=== PATIENT | female | born 1955 | race Caucasian/White ===

== ENCOUNTER → 2018-11-15 | Day surgery (SDC) | payer OTHER | LOC: JMAMMO 08:57 ==

== ENCOUNTER 2018-12-15 04:56 | Day surgery (SDC) | payer OTHER ==
[2018-12-13 19:01] VITALS: BMI 33.5
[2018-12-15] MEDS ORDERED: LIDOCAINE HCL 1%, 10 MG/ML (20ML VIAL) ONE ×2 (11:35→11:36)
[2018-12-15] MEDS ORDERED: ISOSULFAN BLUE 10 MG/ML VIAL SQ ONE (11:35)
[2018-12-15] MEDS ORDERED: KETOROLAC TROMETHAMINE 30 MG/1 ML VIAL ONE (12:38)
[2018-12-15] MEDS ORDERED: PROPOFOL 20 ML ONE (12:38)
[2018-12-15] MEDS ORDERED: DEXAMETHASONE SOD PHOSPHATE 4 MG/1 ML VIAL ONE (12:38)
[2018-12-15] MEDS ORDERED: MIDAZOLAM HCL 2 MG/2 ML SINGLE DOSE VIAL ONE (12:38)
[2018-12-15] MEDS ORDERED: ceFAZolin SODIUM 1 GM VIAL IVPB ONE (13:12)
[2018-12-15] MEDS ORDERED: ePHEDrine SULFATE 50 MG/1 ML AMPULE ONE (13:35)
[2018-12-15] MEDS ORDERED: LIDOCAINE HCL 1%, 10 MG/ML (20ML VIAL) NR ONE (14:13)
[2018-12-15] MEDS ORDERED: oxyCODONE HCL 5 MG TABLET PO PRN (14:43)
[2018-12-15] MEDS ORDERED: ONDANSETRON 4 MG/2 ML VIAL IVPUSH PRN (14:43)
[2018-12-15] MEDS ORDERED: LACTATED RINGERS SOLUTION 1,000 ML IV SCH (14:45)
[2018-12-15 17:04] VITALS: TEMP 97.2
[2018-12-15 17:58] VITALS: BP 141/69; PULSE 90
--- NOTE | 2018-12-15 20:21 | OP ---
DATE OF OPERATION: 12/15/2018 PREOPERATIVE DIAGNOSIS: Left breast cancer. POSTOPERATIVE DIAGNOSIS: Left breast cancer. PROCEDURE: Left breast wide localized lumpectomy, central node biopsy. SURGEON: Radha Cannon M.D. ANESTHESIA: General. ESTIMATED BLOOD LOSS: Minimal. COMPLICATIONS: None. This was a sterile procedure. INDICATION FOR PROCEDURE: Patient presented with a screening mammogram and ultrasound that noted a lesion in the upper outer left breast. A needle core biopsy showed invasive carcinoma. My recommendation was lumpectomy and central node biopsy. The procedure was discussed, all questions answered. PROCEDURE IN DETAIL: The patient was brought to [facility] in [place], was taken out to breast imaging, whereby we localized clip in the upper outer left breast by the radiologist and brought to nuclear medicine, where I injected technetium injection in the left 2 o'clock areolar border and then brought up to the operating room, and after induction of general anesthesia and IV antibiotics, 5 mL of isosulfan blue dye was injected into the left subareolar plexus and breast was massaged for 5 minutes. The breast and axilla were then prepped and draped in the usual sterile fashion. The area of the lumpectomy in the outer left breast as well as the axillary area were anesthetized with 1% lidocaine without epinephrine. A 4-cm incision was made in the left axilla, carried down through the clavipectoral fascia to identify 3 sentinel lymph nodes. There was sentinel lymph node number 1 that was blue and hot, the 2nd was also blue and hot, and the 3rd one has the maximum radioactivity was also blue and hot. There was no other blue dye radioactivity. Within the axilla, there were no pathologic lymph nodes on examination. Once the axillary surgery was completed, hemostasis was assured with electrocautery, and then the left breast lumpectomy was performed. A radial incision was made in the left breast 2 o'clock location and the wire was used as a guide to get down to the area. This was incised en bloc, tagged with a long stitch lateral, short stitch superior, and sent for specimen radiograph. Hemostasis assured with electrocautery. A specimen radiograph showed the clip and wire to be intact within the specimen, this was the density essentially central in the specimen. This was then sent to pathology for permanent section. Once hemostasis was assured, the parenchyma was approximated with interrupted 2-0 Vicryl, skin approximated with interrupted 2-0 Vicryl, running 4-0 Prolene. A sterile dressing with Tegaderm and 4x4s applied. The axillary incision was also closed in routine fashion with interrupted 2-0 Vicryl, running 4-0 Prolene. A sterile dressing with Tegaderm and 4x4s applied. She was extubated on the operating room table and taken to recovery in good condition. Ashvin [id number]
--- NOTE | 2018-12-22 16:46 | PATH ---
Surgical Pathology Report Patient Name: ZOHAIB WHITFIELD [facility]. Rec. #: [id number] /Age/Gender: 1955 (Age: 63) / F Account: [id number] Location: [facility] Taken: 12/15/2018 Received: 12/15/2018 Reported: 12/22/2018 Physicians: Radha Cannon M.D. Specimen(s) Received A: LEFT AXILLARY SENTINEL LYMPH NODE #1 HOT AND BLUE B: LEFT AXILLARY SENTINEL LYMPH NODE #2 HOT AND BLUE C: LEFT AXILLERY SENTINEL LYMPH NODE #3 BLUE AND HOT D: LEFT BREAST LUMPECTOMY Clinical History Wide excision: Invasive CA Final Diagnosis A. lymph node, left axillary sentinel #1, excision: One lymph node, negative for metastatic carcinoma (0/1). B. lymph node, left axillary sentinel #2, excision: One lymph node, negative for metastatic carcinoma (0/1). C. lymph node, left axillary sentinel #3, excision: One lymph node, negative for metastatic carcinoma (0/1). D. breast, left, lumpectomy: Encapsulated papillary carcinoma (low nuclear grade), measuring 1.0 cm in greatest dimension, microscopically. (See note) No invasion is identified. 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 Surgical margins are uninvolved by papillary carcinoma/DCIS; papillary carcinoma and DCIS are aT 4 mm From the closest (medial) margin. Remaining breast tissue shows INTRADUCTAL PAPILLOMAS, atypical ductal hyperplasia (adh) SCLEROSING adenosis, usual ductal hyperplasia (UDH), cystic apocrine metaplasia and associated calcifications. Prior biopsy site changes are present. Pathologic stage (pTNM): pTis (DCIS) pN0. see also DCIS case summary below. Note: Myoepithelial immunohistochemical markers (SMM-HC & p63, performed at [facility]) demonstrate the presence of myoepithelial cells in the papillary carcinoma. This finding supports the diagnosis. Comments DCIS of the Breast: Surgical Pathology Cancer Case Summary (Based on AJCC TNM 8 th edition) Procedure _X_ Excision (less than total mastectomy) Specimen Laterality _X_ Left Size (Extent) of DCIS Estimated size (extent) of DCIS (greatest dimension using gross and microscopic evaluation): at least (millimeters) 10 mm Number of blocks with DCIS: 2 Number of blocks examined: 9 Note: The size (extent) of DCIS is an estimation of the volume of breast tissue occupied by DCIS. Histologic Type _X_ Ductal carcinoma in situ _X_ Encapsulated papillary carcinoma (with solid papillary features) without invasive carcinoma Architectural Patterns _X_ Cribriform _X_ Micropapillary _X_ Papillary Nuclear Grade _X_ Grade I (low) Necrosis _X_ Present, focal (small foci or single cell necrosis) Margins _X_ Uninvolved by encapsulated papillary carcinoma /DCIS Distance from closest margin (millimeters): 4 mm Specify closest margin: medial Regional Lymph Nodes _X_ Uninvolved by tumor cells Number of Lymph Nodes Examined: 3 Number of [place] Nodes Examined : 3 Pathologic Stage Classification (pTNM, AJCC 8th Edition) Primary Tumor (pT) _X_ pTis (DCIS): Ductal carcinoma in situ Regional Lymph Nodes (pN) _X_pN0(sn) Microcalcifications _X_ Present in DCIS _X_ Present in nonneoplastic tissue Biomarker Studies Results of ER and MT studies performed on this specimen (block D2) at [facility] are as follows: ER (clone [id number] mouse monoclonal antibody by [employer]): 100 % nuclear staining with strong intensity (positive). MT (clone16 mouse monoclonal antibody by [employer]): >95 % nuclear staining with moderate to strong intensity (positive). Positive and negative controls (internal if applicable) show appropriate results. Formalin fixation and cold ischemic times are within current ASCO/CAP recommendations for ER, MT and Her2 testing. Electronically Signed Georgia Goodman M.D. Gross Description A. Received in formalin, labeled "left axillary sentinel lymph node #1 hot and blue" is a 1.8 x 0.7 x 0.4 cm lymph node with attached fatty tissue. The lymph node is bisected and entirely submitted in one cassette. B. Received in formalin, labeled "left axillary sentinel lymph node #2 hot and blue" is a 1.3 x 0.6 x 0.4 cm lymph node with attached fatty tissue. The lymph node is bisected and entirely submitted in one cassette. C. Received in formalin, labeled "left axillary sentinel lymph node #3 blue and hot" is a 1.4 x 1.0 x 0.5 cm lymph node with attached fatty tissue. The lymph node is bisected and entirely submitted in one cassette. D. Received in formalin, labeled "left breast lumpectomy" is a 5.5 x 4.5 x 1.4 cm portion of fibrofatty tissue with a localizing needle in place. A long stitch indicates the lateral margin and a short stitch indicates the superior margin, per the surgeon. The specimen is inked as follows: Anterior-red, deep-black, inferior-green, medial-yellow, superior and lateral blue. Sectioning reveals a 1.5 x 1.3 x 1 cm ill-defined, firm mass abutting the medial and lateral margins, at 1 cm from the deep and anterior margins and > 1 cm from the superior and inferior margins. Plant Safety Engineer sections are submitted in nine cassettes as follows: 1- full-face section of mass with medial and lateral margins; 2, mass with medial, lateral and deep margins; 3-mass with medial, lateral, and anterior margins; 4-7-fibrous/ firm tissue surrounding mass; 8-superior margin; 9-inferior margin. Time to formalin fixation: 58 minutes. Total formalin fixation time: Approximately 28 hours AE/12/17/2018 ebram/12/17/2018
== END 2018-12-15 18:00 | disposition home or self-care (01) ==
LOC: JASU-SURG 04:56
PROVIDERS: ATTEND Surgery
PROC: 0HBU0ZZ Excision of Left Breast, Open Approach (ICD-10-PCS; principal; 2018-12-15 12:00)
DX: C50.412 Malignant neoplasm of upper-outer quadrant of left female breast (principal)
CPT/HCPCS: 19281; 78195-TC; 88307-TC; 88342-TC; 94760; A9541

== ENCOUNTER 2019-05-04 14:36 | Emergency (ER) | payer OTHER ==
[2019-05-04 14:51] VITALS: TEMP 97.9; BMI 32.8
[2019-05-04] MEDS ORDERED: ACETAMINOPHEN 1000 MG/100 ML VIAL (NON FORMULARY) IVPB ONE (14:51)
[2019-05-04] MEDS ORDERED: SODIUM CHLORIDE 1,000 ML IV STA (14:51)
--- NOTE | 2019-05-04 14:51 | PDOC ---
Rapid Medical Evaluation Time Seen by Provider: 05/04/19 14:47 Medical Evaluation: Allergies Allergy/AdvReac Type Severity Reaction Status Date / Time latex Allergy Rash Verified 12/31/15 14:02 05/04/19 14:47 Pt presents for three days of abdominal pain, fever and diarrhea. She was sent to the ER by Dr. Vivian Liang for evaluation Exam: TTP of the epigastric and RLQ regions Orders: Labs, IV insert Pt to proceed to the ER for further evaluation Discharge Disposition - Diagnosis Abdominal pain Qualifiers: Abdominal location: right lower quadrant Qualified Code(s): R10.31 - Right lower quadrant pain - Referrals - Patient Instructions - Post Discharge Activity
--- NOTE | 2019-05-04 15:02 | PDOC ---
History of Present Illness - General Chief Complaint: Diarrhea Stated Complaint: SENT BY PCP/ABD PAIN Time Seen by Provider: 05/04/19 14:47 History Source: Patient Exam Limitations: No Limitations - History of Present Illness Initial Comments: Meredith Wilkins is a morbidly obese 64 yo F w a pmh of NIDDM, L breast Ca and arhtritis who presents to the [facility] er sent in by Dr. Liang with RLQ pain to have appendicitis ruled out. The patient states that she has been experiencing 3 days of epigastric abdominal pain which radiates to her RLQ. This pain is associated with watery diarrhea after she eats food. She states the pain is rated 6/10 and feels like a burning a sharp sensation. She denies any nausea, vomiting, constipation, fevers, headache, blurry vision, Allergies: Latex Social history: Denies toxic habits. PCP: Dr. Dolly Nuñez + Vivian Liang PSH: Partial hysterectomy Past History - Past Medical History Allergies/Adverse Reactions: Allergies Allergy/AdvReac Type Severity Reaction Status Date / Time latex Allergy Rash Verified 12/31/15 14:02 Home Medications: Ambulatory Orders Metoprolol Succinate [Toprol XL -] 25 mg PO DAILY #30 tab.sr.24h 08/23/15 Atorvastatin Ca [Lipitor] 10 mg PO HS 12/13/18 Gabapentin [Neurontin] 300 mg PO DAILY 12/13/18 Pentosan Polysulfate Sodium [Elmiron] 100 mg PO TID 12/13/18 metFORMIN HCL [Metformin HCl ER] 1,000 mg PO BID 12/13/18 Acetaminophen W/ Codeine #3 [Tylenol # 3 -] 1 - 2 tab PO Q6H PRN #20 tablet MDD 8 pills 12/15/18 Fenofibrate 100 mg PO DAILY 12/15/18 Omeprazole/Sodium Bicarbonate [Zegerid 20mg (RX)] 40 mg PO DAILY 12/15/18 Solifenacin Succinate [Vesicare -] 5 mg PO DAILY 12/15/18 Anemia: No Asthma: No Cancer: No Cardiac Disorders: No CVA: No COPD: No CHF: No Dementia: No Diabetes: Yes GI Disorders: Yes (reflux) Disorders: No HTN: No Hypercholesterolemia: Yes Liver Disease: No Seizures: No Thyroid Disease: No - Surgical History Abdominal Surgery: No Appendectomy: No Cardiac Surgery: No Cholecystectomy: No Lung Surgery: No Neurologic Surgery: No Orthopedic Surgery: Yes (bunionectomy bilateral, epidural injection times two) - Immunization History Immunization Up to Date: No - Psycho Social/Smoking Cessation Hx Smoking History: Never smoked Have you smoked in the past 12 months: No Information on smoking cessation initiated: No Hx Alcohol Use: No Drug/Substance Use Hx: No Substance Use Type: None Hx Substance Use Treatment: No Review of Systems - Review of Systems Able to Perform ROS?: Yes Comments:: CONSTITUTIONAL: Present: Fatigue Absent: fever, no chills EYES: Absent: visual changes ENT: Absent: ear pain, no sore throat CARDIOVASCULAR: Absent: chest pain, no palpitations RESPIRATORY: Absent: cough, no SOB GI: Present: Abdominal pain, diarrhea Absent: no nausea, no vomiting, no constipation GENITOURINARY: Absent: dysuria, no frequency, no hematuria MUSKULOSKELETAL: Absent: back pain, no arthralgia, no myalgia SKIN: Absent: rash NEURO: Absent: headache *Physical Exam - Vital Signs Last Vital Signs Temp Pulse Resp BP Pulse Ox 97.9 F 81 16 122/78 98 05/04/19 14:48 05/04/19 14:48 05/04/19 14:48 05/04/19 14:48 05/04/19 14:48 - Physical Exam GENERAL: Well-appearing, well-nourished. No apparent distress. HEENT: Normocephalic, atraumatic. PERRL, EOM intact. CARDIOVASCULAR: Normal S1, S2. Regular rate and rhythm. PULMONARY: No evidence of respiratory distress. Lungs clear to auscultation bilaterally. No wheezing, rales or rhonchi. ABDOMEN: Right and left abdominal TTP, right more than left, mild epigastric TTP. EXTREMITIES: Normal ROM in all four extremities. No gross deformities. SKIN: Warm, dry. No rash NEUROLOGICAL: No focal neurological deficits. ED Treatment Course - LABORATORY CBC & Chemistry Diagram: 05/04/19 15:00 05/04/19 15:00 - RADIOLOGY Radiograph Interpretation: CTAP: EXAM#: TYPE/EXAM: RESULT: [id number] CT/ABDOMEN PELVIS CT WITH CONTR HISTORY PROVIDED: Right lower quadrant pain. Sequential axial images were obtained from the domes of the diaphragms through the symphysis pubis following the administration of intravenous contrast material. The lung bases are clear. The liver is normal in size. It is slightly hypodense in texture consistent with diffuse fatty infiltration. No mass lesions identified within the liver. The spleen, pancreas, adrenal glands and kidneys demonstrate no significant abnormalities. There is no evidence of intra-abdominal or retroperitoneal lymphadenopathy or fluid collections. There is no evidence of pneumoperitoneum, bowel obstruction or intra-abdominal abscess. There is no CT evidence of acute appendicitis or diverticulitis. Examination of the pelvis demonstrates no evidence of pelvic masses, fluid collections or lymphadenopathy. There is no evidence of acute bony pathology. IMPRESSION: No evidence of appendicitis or acute pathology within the abdomen or pelvis. Medical Decision Making - Medical Decision Making Meredith Wilkins is a morbidly obese 64 yo F w a pmh of NIDDM, L breast Ca and arhtritis who presents to the [facility] er sent in by Dr. Liang with RLQ pain to have appendicitis ruled out. The patient states that she has been experiencing 3 days of epigastric abdominal pain which radiates to her RLQ. This pain is associated with watery diarrhea after she eats food. She states the pain is rated 6/10 and feels like a burning a sharp sensation. Vital Signs Temp Pulse Resp BP Pulse Ox 97.9 F 81 16 122/78 98 05/04/19 14:48 05/04/19 14:48 05/04/19 14:48 05/04/19 14:48 05/04/19 14:48 DDx IBNLT: appendicitis, pancreatitis, cholecystitis, colitis, Pylo, electrolyte /metabolic disturbance Plan: Labs, IV hydration, CTAP, analgesia, re-assess. Labs: Unremarkable CTAP: No evidence of appendicitis or acute pathology within the abdomen or pelvis. Re-assessment: Patient feels better after analgesia in ED and requests to be discharged Disposition: Home with PCP fu Discharge - Discharge Information Problems reviewed: Yes Clinical Impression/Diagnosis: Abdominal pain Qualifiers: Abdominal location: right lower quadrant Qualified Code(s): R10.31 - Right lower quadrant pain Condition: Improved Disposition: HOME - Admission No - Follow up/Referral Referrals: Vivian Liang MD [Primary Care Provider] - - Patient Discharge Instructions Patient Printed Discharge Instructions: Acute Abdominal Pain Additional Instructions: You came into the ER with abdominal pain. We did a cat scan which showed no abnormalities. Please schedule a follow up appointment with your primary care doctor in the next 3 to 5 days to make sure you are feeling well, getting better and being taken care of. Come back to the ER immediately if your pain worsens, you get a fever, start vomiting, or have any other new or worsening concerns. Thank you for coming to the [facility] ER. We hope you feel better soon! Print Language: MALAY - Post Discharge Activity
[2019-05-04 15:44] LABS: BASO % 1.3 % (0-2.0); EOS % 3.9 % (0-4.5); HEMOGLOBIN 12.9 GM/dL (10.7-15.3); LYMPH % 29.4 % (8-40); MCH 27.2 pg (25.7-33.7); MEAN CELL VOLUME 82.6 fl (80-96); MEAN PLT VOLUME 8.9 fl (7.5-11.1); MONO % 6.8 % (3.8-10.2); NEUT % 58.6 % (42.8-82.8); PLATELET COUNT 257 K/MM3 (134-434); RBC 4.73 M/mm3 (3.60-5.2); WHITE BLOOD COUNT 4.5 K/mm3 (4.0-10.0)
[2019-05-04] MEDS ORDERED: ACETAMINOPHEN INJECTION 100 ML IVPB ONE (16:00)
--- NOTE | 2019-05-04 16:54 | PDOC ---
Documentation entered by Lillian Hamlin SCRIBE, acting as scribe for Joi Guardado MD. Joi Guardado MD: This documentation has been prepared by the Yakelin edwards Adrianna, SCRIBE, under my direction and personally reviewed by me in its entirety. I confirm that the documentation accurately reflects all work, treatment, procedures, and medical decision making performed by me. Attending Attestation - Resident Resident Name: Omari May - ED Attending Attestation I have performed the following: I have examined & evaluated the patient, The case was reviewed & discussed with the resident, I agree w/resident's findings & plan, Exceptions are as noted - HPI HPI: The patient is a 64 year old female, with a significant PMH of IDDM, left breast CA and OA, who presents to the ED for evaluation of abdominal pain for 3 days. Patient complains of sharp, burning epigastric pain that radiates to her RLQ. She endorses associated diarrhea, worse after PO intake. She was seen by her PCP today, who advised she come to the ED to rule out appendicitis. Allergies: Latex Surgical History: Partial hysterectomy Social History: Denies EtOH, tobacco, or illicit drug use PCP: Dr. Liang - Physicial Exam PE: 05/04/19 15:33 GENERAL: The patient is in no acute distress. ENT: Ears normal, nares patent, oropharynx clear without exudates. Moist mucous membranes. NECK: Normal range of motion, supple LUNGS: Breath sounds equal, clear to auscultation bilaterally. No wheezes, and no crackles. HEART:Regular rate and rhythm, normal S1 and S2 without murmur, rub or gallop. ABDOMEN: Soft, nontender, normoactive bowel sounds. EXTREMITIES: Normal range of motion, no edema. NEUROLOGICAL: Cranial nerves II through XII grossly intact. Normal speech. No focal neurological deficits. SKIN: Warm, Dry, normal turgor, no rashes or lesions noted. - Medical Decision Making 05/04/19 15:39 64-year-old female presenting to the emergency department with a complaint of abdominal pain and diarrhea. No known fevers or chills. Patient states she has so many episodes of diarrhea that she could not count them Non bloody, non mucoid EKG: Twelve-lead EKG was performed and reviewed by me. There is normal sinus rhythm with a normal rate. The axis is normal. The intervals are normal. There are no ST or T wave abnormalities. Impression: Normal twelve-lead EKG 05/04/19 16:50 05/04/19 16:54 Laboratory Tests 05/04/19 05/04/19 15:00 15:00 WBC 4.5 Hgb 12.9 Hct 39.0 Plt Count [address] pending 05/04/19 18:15 CT: No evidence of appendicitis or acute pathology No diverticulitis Will discharge home
[2019-05-04 17:14] LABS: ALBUMIN 3.7 g/dl (3.4-5.0); BILIRUBIN,TOTAL 0.4 mg/dL (0.2-1); BLOOD UREA NITROGEN 9.8 mg/dL (7-18); CALCIUM 8.9 mg/dL (8.5-10.1); CREATININE 0.7 mg/dL (0.55-1.3); POTASSIUM 4.2 mmol/L (3.5-5.1)
[2019-05-04 17:25] LABS: PH,URINE 5.5 (5.0-8.0); URINE APPEARANCE CLEAR; URINE BILIRUBIN NEGATIVE (NEGATIVE); URINE COLOR YELLOW; URINE GLUCOSE (UA) NEGATIVE (NEGATIVE); URINE KETONE NEGATIVE (NEGATIVE); URINE LEUK ESTERASE NEGATIVE (NEGATIVE); URINE NITRITE NEGATIVE (NEGATIVE); URINE PROTEIN NEGATIVE (NEGATIVE); URINE UROBILINOGEN 0.2 mg/dL (0.2-1.0)
[2019-05-04 18:29] VITALS: PULSE 67
[2019-05-04 18:51] VITALS: BP 116/58
[2019-05-04 18:56] LABS: MAGNESIUM 1.9 mg/dL (1.8-2.4); PHOSPHOROUS 3.5 mg/dL (2.5-4.9)
--- NOTE | 2019-05-05 11:56 | EKG ---
Test Reason : Blood Pressure : / mmHG Vent. Rate : 067 BPM Atrial Rate : 067 BPM P-R Int : 154 ms QRS Dur : 078 ms QT Int : 434 ms P-R-T Axes : 042 010 024 degrees QTc Int : 458 ms POOR DATA QUALITY, INTERPRETATION MAY BE ADVERSELY AFFECTED NORMAL SINUS RHYTHM POSSIBLE INFERIOR INFARCT , AGE UNDETERMINED ABNORMAL ECG WHEN COMPARED WITH ECG OF 31-DEC-2015 14:03, NO SIGNIFICANT CHANGE WAS FOUND Confirmed by BAKARI BAZAN, [place] ([id number]) on 05/05/2019 11:55:44 AM Referred By: Confirmed By:DALLAS VILLEGAS MD
== END 2019-05-04 18:51 | disposition home or self-care (01) ==
LOC: JER 14:36
PROC: 3E033NZ Introduction of Analgesics, Hypnotics, Sedatives into Peripheral Vein, Percutaneous Approach (ICD-10-PCS; principal; 2019-05-04)
DX: R10.13 Epigastric pain (principal); Z91.040 Latex allergy status; E66.01 Morbid (severe) obesity due to excess calories
CPT/HCPCS: 36415; 74177-TC; 80053; 81003; 83605; 83690; 83735; 84100; 85025; 87086; 93005; 93010; 99283-25; J0131; J7030; Q9967

== ENCOUNTER 2021-10-17 15:22 | Emergency (ER) | payer OTHER ==
[2021-10-17 15:42] VITALS: BP 131/63; PULSE 108; TEMP 99.7; BMI 32.2
[2021-10-17] MEDS ORDERED: ACETAMINOPHEN 325 MG TABLET (FP) PO ONE (16:56)
[2021-10-17] MEDS ORDERED: IBUPROFEN 600 MG TABLET (FP) PO ONE (16:56)
== END 2021-10-17 18:31 | disposition home or self-care (01) ==
LOC: JER 15:22
DX: U07.1 COVID-19 (principal)
CPT/HCPCS: 71046-TC-FY; 99283-25

== ENCOUNTER 2023-03-26 04:31 | Day surgery (SDC) | payer OTHER ==
[2023-03-24 13:05] VITALS: BMI 27.3
[2023-03-26 11:29] VITALS: RESP 18
[2023-03-26 11:31] VITALS: BP 110/66; PULSE 72; TEMP 98.7
== END 2023-03-26 11:35 | disposition home or self-care (01) ==
LOC: JASU-ENDO 04:31
PROVIDERS: ATTEND Internal Medicine Gastroenterology
PROC: 0DBL8ZX Excision of Transverse Colon, Via Natural or Artificial Opening Endoscopic, Diagnostic (ICD-10-PCS; 2023-03-26)
PROC: 0DBN8ZX Excision of Sigmoid Colon, Via Natural or Artificial Opening Endoscopic, Diagnostic (ICD-10-PCS; 2023-03-26)
PROC: 0DBP8ZX Excision of Rectum, Via Natural or Artificial Opening Endoscopic, Diagnostic (ICD-10-PCS; 2023-03-26)
PROC: 0DBF8ZX Excision of Right Large Intestine, Via Natural or Artificial Opening Endoscopic, Diagnostic (ICD-10-PCS; 2023-03-26)
PROC: 0DBM8ZX Excision of Descending Colon, Via Natural or Artificial Opening Endoscopic, Diagnostic (ICD-10-PCS; 2023-03-26)
PROC: 0DBK8ZX Excision of Ascending Colon, Via Natural or Artificial Opening Endoscopic, Diagnostic (ICD-10-PCS; principal; 2023-03-26 10:00)
DX: Z12.11 Encounter for screening for malignant neoplasm of colon (principal); Z86.010 Personal history of colon polyps; K52.9 Noninfective gastroenteritis and colitis, unspecified
CPT/HCPCS: 82962; 88305-TC; 88342-TC